=== PATIENT | male | born 1980 | race Caucasian/White ===

== ENCOUNTER 2018-11-04 22:08 | Emergency (ER) | payer MEDICAID ==
[~2018-11-04] VITALS: Ht 180.3 cm; Wt 102.1 kg
--- NOTE | 2018-11-04 22:35 | NUR ---
Patient discharged to home in stable conditon. Written and verbal after care instructions given. Patient verbalizes understanding of instructions. Walked out of ER with no distress noted
[2018-11-04 22:36] VITALS: BP 118/72
== END 2018-11-04 22:37 | disposition home or self-care (01) ==
LOC: ER 22:10
DX: H83.02 Labyrinthitis, left ear (principal)
CPT/HCPCS: A4663

== ENCOUNTER 2018-11-07 18:06 | Emergency (ER) | payer MEDICAID, OTHER ==
[~2018-11-07] VITALS: Ht 180.3 cm; Wt 103.9 kg
[2018-11-07] MEDS ORDERED: AMOX250T PO (18:18)
[2018-11-07] MEDS ORDERED: ASPIRIN 81 MG TAB.CHEW PO ONE (18:45)
[2018-11-07] MEDS ORDERED: LORAZEPAM 0.5 MG TABLET PO ONE (18:45)
[2018-11-07] MEDS ORDERED: ASPIRIN 81 MG TAB.CHEW ONE (18:48)
[2018-11-07] MEDS ORDERED: LORAZEPAM 1 MG TABLET ONE (18:49)
[2018-11-07 19:09] LABS: BASOPHILS % (AUTO) 0.6 % (0.0-2.0); EOSINOPHILS # (AUTO) 0.2 K/uL (0.0-0.7); EOSINOPHILS % (AUTO) 3.4 % (0.0-7.0); HEMATOCRIT 36.5 % (36.7-47.1); HEMOGLOBIN 12.8 g/dL (12.5-16.3); LYMPHOCYTES # (AUTO) 2.9 K/uL (20.0-40.0); LYMPHOCYTES % (AUTO) 39.6 % (20.5-51.5); MEAN CORPUSCULAR HEMOGLOBIN 31.4 uug (23.8-33.4); MEAN CORPUSCULAR HGB CONC 35 g/dL (32.5-36.3); MONOCYTES # (AUTO) 0.5 K/uL (2.0-10.0); NEUTROPHILS # (AUTO) 3.6 K/uL (1.8-8.9); NEUTROPHILS % (AUTO) 49.4 % (38.5-71.5); PLATELET COUNT (AUTO) 167 K/uL (152-348); RED BLOOD CELL COUNT(AUTO) 4.05 MIL/uL (4.06-5.63); WHITE BLOOD COUNT (AUTO) 7.3 K/uL (3.6-10.2)
[2018-11-07 19:17] LABS: CREATININE 1.1 mg/dL (0.6-1.3)
[2018-11-07 19:29] LABS: BILIRUBIN,DIRECT 0.1 mg/dL (0.0-0.2); BILIRUBIN,TOTAL 0.4 mg/dL (0.2-1.0); TOTAL PROTEIN, SERUM 7.1 g/dL (6.4-8.2)
--- NOTE | 2018-11-07 19:45 | NUR ---
Note sharmila in EDM - 11/07/18 at 2000 by MATTHEW PATIENT WAS SEEN BY . LABS ARE PENDING. NEW DRESSING APPLIED TO LEFT ARM. PATIENT IS AWARE OF PENDING ADMISSION TO HOSPITAL.
--- NOTE | 2018-11-07 22:23 | NUR ---
Patient discharged to home in stable conditon. Written and verbal after care instructions given. Patient verbalizes understanding of instructions. Pt ambulated out of ER with steady gait, no acute signs of distress, VSS, all belongings taken.
[2018-11-07 22:24] VITALS: BP 121/84
== END 2018-11-07 22:25 | disposition home or self-care (01) ==
LOC: ER 18:08
DX: H93.13 Tinnitus, bilateral (principal); R07.89 Other chest pain; R20.2 Paresthesia of skin; F41.9 Anxiety disorder, unspecified; Z79.2 Long term (current) use of antibiotics
CPT/HCPCS: 36415; 70030-TC; 71045; 85025; 93005; A4663

== ENCOUNTER 2019-03-15 23:45 | Emergency (ER) | payer OTHER ==
[~2019-03-15] VITALS: Ht 180.3 cm; Wt 104.3 kg
[~2019-03-15 23:45] MED LIST: AMOX250T PO
--- NOTE | 2019-03-16 00:15 | NUR ---
Patient ambulated with stable gait. Speech clear, speaks in complete sentences. A/Ox4. Patient came for c/o pain, redness, swelling in left buttocks x4 days. Respiratory even and unlabored, no sob no cough. Denies any n/v/d
[2019-03-16] MEDS ORDERED: SULFAMETH/TRIMETH 800/160 MG TABLET PO ONE (00:45)
[2019-03-16] MEDS ORDERED: METRONIDAZOLE 250 MG TABLET PO ONE (00:45)
[2019-03-16] MEDS ORDERED: HYDROCODONE/APAP 5-325MG TABLET PO ONE (00:45)
[2019-03-16] MEDS ORDERED: METRONIDAZOLE 250 MG TABLET ONE (01:00)
[2019-03-16] MEDS ORDERED: SULFAMETH/TRIMETH 800/160 MG TABLET ONE (01:00)
[2019-03-16] MEDS ORDERED: HYDROCODONE/APAP 5-325MG TABLET ONE (01:01)
--- NOTE | 2019-03-16 01:03 | NUR ---
Patient discharged to home in stable conditon. Written and verbal after care instructions given. Patient verbalizes understanding of instructions. Patient ambulated with stable gait.
[2019-03-16 01:33] VITALS: BP 121/85
== END 2019-03-16 01:03 | disposition home or self-care (01) ==
LOC: ER 23:46
DX: L02.31 Cutaneous abscess of buttock (principal); Z79.2 Long term (current) use of antibiotics
CPT/HCPCS: A4663